=== PATIENT | female | born 1995 ===

== ENCOUNTER 2020-11-03 16:46 | Inpatient (IN) | payer BC ==
[2020-11-03 18:21] LABS: BLOOD UREA NITROGEN,BUN 9 mg/dL (7.0-18.0); CARBON DIOXIDE,CO2 26.1 mmol/L (21.0-32.0); CHLORIDE,CL 102 mmol/L (98-107); GLUCOSE RANDOM 87 mg/dL (74-106); POTASSIUM,K 4.2 mmol/L (3.5-5.1); SODIUM,NA 138 mmol/L (136-145)
[2020-11-03] MEDS ORDERED: Misoprostol 25 MCG (1/4 of 100 MCG) Tab VAG PRN (19:38)
[2020-11-03] MEDS ORDERED: Carboprost Tromethamine 250 MCG/1 ML Amp IM PRN (19:38)
[2020-11-03] MEDS ORDERED: Butorphanol 1 MG/ML SDV IVPUSH PRN (19:38)
[2020-11-03] MEDS ORDERED: Tranexamic Acid 1,000 MG in Sodium Chloride 0.9% 100 ML IV PRN (19:38)
[2020-11-03] MEDS ORDERED: Misoprostol 200 MCG Tab PO PRN (19:38)
[2020-11-03] MEDS ORDERED: Methylergonovine 0.2 MG/1 ML Amp IM PRN (19:38)
[2020-11-03] MEDS ORDERED: Sodium Chloride 0.9% 2.5 ML Syringe FLUSH PRN (19:38)
[2020-11-03] MEDS ORDERED: Terbutaline 1 MG/ML SDV SUBCUT PRN (19:38)
[2020-11-03] MEDS ORDERED: Nalbuphine 10 MG/1 ML Vial IVPUSH PRN (19:38)
[2020-11-03] MEDS ORDERED: Sodium Chloride 0.9% 10 ML Syringe FLUSH PRN (19:38)
[2020-11-03] MEDS ORDERED: Water For Irrigation,Sterile 1,000 ML Container IRR PRN (19:38)
[2020-11-03] MEDS ORDERED: Ondansetron 4 MG/2 ML SDV IVPUSH PRN (19:38)
[2020-11-03] MEDS ORDERED: Sodium Chloride 0.9% 10 ML SDV IV PRN (19:38)
[2020-11-03] MEDS ORDERED: Lidocaine 1% 50 ML MDV INJECT PRN (19:38)
[2020-11-03] MEDS ORDERED: Lactated Ringers 1,000 ML IV SCH (19:45)
[2020-11-03] MEDS ORDERED: Oxytocin/0.9 % Sodium Chloride 30 UNIT/500 ML BAG IV SCH (19:45)
[2020-11-03] MEDS ORDERED: Calcium Gluconate 10% 1 GM/10 ML SDV IV PRN (21:04)
[2020-11-03] MEDS ORDERED: Magnesium Sulfate/Water 4 GM in Premix Bag 1 BAG IV ONE (21:04)
[2020-11-03] MEDS: Magnesium Sulfate/Water 20 GM/500 ML BAG IV SCH (22:00)
[2020-11-04] MEDS: Lactated Ringers 1,000 ML IV SCH ×2 (02:20→03:40)
[2020-11-04] MEDS ORDERED: Ropivacaine HCl/PF 200 ML ONE ×2 (02:43→16:37)
[2020-11-04] MEDS: Magnesium Sulfate/Water 20 GM/500 ML BAG IV SCH (08:30)
[2020-11-04] MEDS ORDERED: Magnesium Sulfate/Water 20 GM/500 ML BAG IV SCH (10:15)
[2020-11-04] MEDS ORDERED: Lidocaine 2% with EPINEPHrine 1:200,000 20 ML SDV ONE (16:37)
[2020-11-04] MEDS ORDERED: fentaNYL 100 MCG/2 ML SDV ONE (16:38)
--- NOTE | 2020-11-04 17:44 | PCM.PRNOTE ---
- Free Text/Narrative Note: Anes Note Patient epidural infusion is complete. Patient reports increased discomfort in the perinela and sacral area. A sitting dose of 5 cc 2% lido with epi plus 100 mcg fentanyl was administered. A new epidural infusion bag was placed. 200 cc 0.2% ropivicaine with 1 mcg/cc fentanyl was started. rate is 12 cc hr with 8 cc q 20 min prn bolus. Patient now reports much improved analgesia. Time with patient [id number] Kelvin Teague CRNA
[2020-11-04] MEDS: Oxytocin/0.9 % Sodium Chloride 30 UNIT/500 ML BAG IV SCH ×2 (17:53→18:07)
[2020-11-04] MEDS ORDERED: Witch Hazel Medicated Pads 40/Jar TOP PRN (18:12)
[2020-11-04] MEDS ORDERED: Docusate Sodium 100 MG Cap PO PRN (18:12)
[2020-11-04] MEDS ORDERED: Benzocaine/Menthol 20%-0.5% Spray 78 GM Cannister TOP PRN (18:12)
[2020-11-04] MEDS ORDERED: Bisacodyl 10 MG Supp RECTAL PRN (18:12)
[2020-11-04] MEDS ORDERED: Acetaminophen 500 MG Tab PO PRN ×2 (18:12)
[2020-11-04] MEDS ORDERED: oxyCODONE 5 MG Tab PO PRN (18:12)
[2020-11-04] MEDS ORDERED: Lanolin 100% Cream 7 GM Tube TOP PRN (18:12)
[2020-11-04] MEDS ORDERED: Ibuprofen 400 MG Tab PO PRN (18:12)
--- NOTE | 2020-11-04 18:22 | PCM.DEL ---
L & D Note - General Info Date of Service: 11/04/20 - Delivery Note Labor: Induced by Oxytocin Cervical Ripening Method: Misoprostil Delivery Outcome: Livebirth Delivery Method: Spontaneous Vaginal Delivery-Single Infant Delivery Mode: Spontaneous Presentation: Right Occiput Anterior (ROSA ISELA) Nuchal Cord: Present, Reduced Anesthesia Type: Epidural Amniotic Fluid Description: Clear Episiotomy Type: None Laceration: None Placenta: Intact, Spontaneous Cord: 3 Vessels Estimated Blood Loss: 250 Resuscitation Needed: Yes Provider: Janet Chauhan Post Delivery Events: Shoulder Dystocia (1min 10sec, delivered with McRobert's, suprapubic pressure, posterior arm) Second Stage Interventions: Reports: Pushing Effectively, Pushing, McRobert's Position - General Info Date of Service: 11/04/20 - Patient Data Weight - Most Recent: 197 lb 6.4 oz I&O - Last 24 Hours: Intake & Output 11/04/20 11/04/20 11/04/20 06:59 14:59 22:59 Intake Total 1000 250 Output Total 1530 Balance 1000 -1280 Lab Results Last 24 Hours: Laboratory Results - last 24 hr 11/03/20 11/03/20 11/03/20 Range/Units 17:40 17:40 20:00 Sodium 138 (136-145) mmol/L Potassium 4.2 (3.5-5.1) mmol/L Chloride 102 (98-107) mmol/L Carbon Dioxide 26.1 (21.0-32.0) mmol/L BUN 9 (7.0-18.0) mg/dL Creatinine 0.7 (0.6-1.0) mg/dL Est Cr Clr Drug Dosing TNP Estimated GFR (MDRD) > 60.0 ml/min Glucose 87 (74-106) mg/dL Uric Acid 4.6 (2.6-7.2) mg/dL Calcium 8.2 L (8.5-10.1) mg/dL Magnesium (1.8-2.4) mg/dL Total Bilirubin 0.2 (0.2-1.0) mg/dL AST 18 (15-37) IU/L ALT 23 (14-63) IU/L Alkaline Phosphatase 115 (46-116) U/L Lactate Dehydrogenase 204 (81-234) U/L Total Protein 6.8 (6.4-8.2) g/dL Albumin 2.9 L (3.4-5.0) g/dL Globulin 3.9 (2.6-4.0) g/dL Albumin/Globulin Ratio 0.7 L (0.9-1.6) SARS-CoV-2 RNA (ERWIN) NEGATIVE (NEGATIVE) Blood Type A POSITIVE Antibody Screen NEGATIVE 11/04/20 11/04/20 11/04/20 Range/Units 02:12 08:06 14:18 Sodium (136-145) mmol/L Potassium (3.5-5.1) mmol/L Chloride (98-107) mmol/L Carbon Dioxide (21.0-32.0) mmol/L BUN (7.0-18.0) mg/dL Creatinine (0.6-1.0) mg/dL Est Cr Clr Drug Dosing Estimated GFR (MDRD) ml/min Glucose (74-106) mg/dL Uric Acid (2.6-7.2) mg/dL Calcium (8.5-10.1) mg/dL Magnesium 4.5 H 5.1 H 4.8 H (1.8-2.4) mg/dL Total Bilirubin (0.2-1.0) mg/dL AST (15-37) IU/L ALT (14-63) IU/L Alkaline Phosphatase (46-116) U/L Lactate Dehydrogenase (81-234) U/L Total Protein (6.4-8.2) g/dL Albumin (3.4-5.0) g/dL Globulin (2.6-4.0) g/dL Albumin/Globulin Ratio (0.9-1.6) SARS-CoV-2 RNA (ERWIN) (NEGATIVE) Blood Type Antibody Screen Med Orders - Current: Current Medications Acetaminophen (Acetaminophen 500 Mg Tab) 500 mg PO Q4H PRN PRN Reason: Pain (mild 1-3) Acetaminophen (Acetaminophen 500 Mg Tab) 1,000 mg PO Q4H PRN PRN Reason: Pain (mild 1-3) Benzocaine/Menthol (Benzocaine/Menthol 20%-0.5% Jennings 78 Gm Cannister) 78 gm TOP ASDIRECTED PRN PRN Reason: Perineal Comfort Measure Bisacodyl (Bisacodyl 10 Mg Supp) 10 mg RECTAL ONETIME PRN PRN Reason: Constipation Calcium Gluconate (Calcium Gluconate 10% 1 Gm/10 Ml Sdv) 1 gm IV ASDIRECTED PRN PRN Reason: respiratory distress Docusate Sodium (Docusate Sodium 100 Mg Cap) 100 mg PO Q12H PRN PRN Reason: Constipation Emollient Ointment (Lanolin 100% Cream 7 Gm Tube) 0 gm TOP ASDIRECTED PRN PRN Reason: Sore Nipples Oxytocin/Sodium Chloride (Oxytocin 30 Unit In Ns 0.9% 500 Ml Premix) 30 unit in 500 mls @ 2 mls/hr IV TITRATE NOY; Protocol Last Titration: 11/04/20 17:53 Dose: 0 munits/min, 0 mls/hr Documented by: Lactated Ringer's (Ringers, Lactated) 1,000 mls @ 5 mls/hr IV ASDIRECTED NOY Last Admin: 11/04/20 03:40 Dose: 5 mls/hr Documented by: Magnesium Sulfate (Magnesium Sulfate In Water 20 Gm/500 Ml) 20 gm in 500 mls @ 25 mls/hr IV ASDIRECTED [facility] Ibuprofen (Ibuprofen 400 Mg Tab) 400 mg PO Q4H PRN PRN Reason: Pain (mild 1-3) Ibuprofen (Ibuprofen 800 Mg Tab) 800 mg PO Q6H PRN PRN Reason: Cramping Misoprostol (Misoprostol 25 Mcg (1/4 Of 100 Mcg) Tab) 25 mcg VAG ONETIME PRN PRN Reason: Cervical Ripening Last Admin: 11/03/20 21:30 Dose: 25 mcg Documented by: Oxycodone HCl (Oxycodone 5 Mg Tab) 5 mg PO Q2H PRN PRN Reason: Pain (severe 7-10) Sodium Chloride (Sodium Chloride 0.9% 10 Ml Syringe) 10 ml FLUSH ASDIRECTED PRN PRN Reason: Keep Vein Open Sodium Chloride (Sodium Chloride 0.9% 2.5 Ml Syringe) 2.5 ml FLUSH ASDIRECTED PRN PRN Reason: Keep Vein Open Sodium Chloride (Sodium Chloride 0.9% 10 Ml Sdv) 10 ml IV ASDIRECTED PRN PRN Reason: IV Use Terbutaline Sulfate (Terbutaline 1 Mg/Ml Sdv) 0.25 mg SUBCUT ASDIRECTED PRN PRN Reason: Tacysystole Witch Nidia (Witch Nidia Medicated Pads 40/Jar) 1 pad TOP ASDIRECTED PRN PRN Reason: comfort care Discontinued Medications Butorphanol Tartrate (Butorphanol 1 Mg/Ml Sdv) 1 mg IVPUSH Q1H PRN PRN Reason: Pain (severe 7-10) Carboprost Tromethamine (Carboprost Tromethamine 250 Mcg/1 Ml Amp) 250 mcg IM ASDIRECTED PRN PRN Reason: Post Hemorrhage Fentanyl (Fentanyl 100 Mcg/2 Ml Sdv) Confirm Administered Dose 100 mcg .ROUTE .STK-MED ONE Stop: 11/04/20 16:39 Lactated Ringer's (Ringers, Lactated) 1,000 mls @ 150 mls/hr IV ASDIRECTED [facility] Last Admin: 11/03/20 21:37 Dose: 5 mls/hr Documented by: Oxytocin/Sodium Chloride (Oxytocin 30 Unit In Ns 0.9% 500 Ml Premix) 30 unit in 500 mls @ 500 mls/hr IV TITRATE [facility] Last Admin: 11/04/20 17:53 Dose: 999 mls/hr Documented by: Tranexamic Acid 1,000 mg/ (Sodium Chloride) 110 mls @ 660 mls/hr IV ONETIME PRN PRN Reason: Bleeding Magnesium Sulfate 4 gm/ Premix 100 mls @ 300 mls/hr IV BOLUS ONE Stop: 11/03/20 21:23 Last Admin: 11/03/20 21:40 Dose: 300 mls/hr Documented by: Magnesium Sulfate (Magnesium Sulfate In Water 20 Gm/500 Ml) 20 gm in 500 mls @ 50 mls/hr IV ASDIRECTED [facility] Last Infusion: 11/04/20 10:12 Dose: 1 gm/hr, 25 mls/hr Documented by: Ropivacaine (Naropin 0.2%) Confirm Administered Dose 200 mls @ as directed .ROUTE .ST-MED ONE Stop: 11/04/20 02:44 Last Admin: 11/04/20 07:37 Dose: Not Given Documented by: Ropivacaine (Naropin 0.2%) Confirm Administered Dose 200 mls @ as directed .ROUTE .STK-MED ONE Stop: 11/04/20 16:38 Lidocaine HCl (Lidocaine 1% 50 Ml Mdv) 50 ml INJECT ONETIME PRN PRN Reason: Laceration repair Lidocaine/Epinephrine (Lidocaine 2% With Epinephrine 1:200,000 20 Ml Sdv) Confirm Administered Dose 20 ml .ROUTE .STK-MED ONE Stop: 11/04/20 16:38 Miscellaneous Medication (Phenylephrine Hcl In 0.9% Nacl 1 Mg/10 Ml Syringe) Confirm Administered Dose 1 mg .ROUTE .STK-MED ONE Stop: 11/04/20 03:27 Misoprostol (Misoprostol 200 Mcg Tab) 200 mcg PO ONETIME PRN PRN Reason: Post Hemorrhage Nalbuphine HCl (Nalbuphine 10 Mg/1 Ml Vial) 10 mg IVPUSH Q1H PRN PRN Reason: Pain (severe 7-10) Ondansetron HCl (Ondansetron 4 Mg/2 Ml Sdv) 4 mg IVPUSH Q6H PRN PRN Reason: Nausea/Vomiting Sterile Water (Water For Irrigation,Sterile 1,000 Ml Container) 1,000 ml IRR ASDIRECTED PRN PRN Reason: delivery - Exam Urinary Catheter Total Time: 0Days 5Hours - Problem List Review Problem List Initiated/Reviewed/Updated: Yes - My Orders Last 24 Hours: My Active Orders 11/04/20 18:12 Patient Status [ADT] Routine May Shower [RC] ASDIRECTED Up ad Radha [RC] ASDIRECTED Acetaminophen [Tylenol Extra Strength] 1,000 mg PO Q4H PRN Acetaminophen [Tylenol Extra Strength] 500 mg PO Q4H PRN Benzocaine/Menthol [Dermoplast Pain Relief 20%-0.5% Jennings] 78 gm TOP ASDIRECTED PRN Docusate Sodium [Colace] 100 mg PO Q12H PRN Ibuprofen [Motrin] 400 mg PO Q4H PRN Ibuprofen [Motrin] 800 mg PO Q6H PRN Lanolin [Lansinoh HPA] See Dose Instructions TOP ASDIRECTED PRN bisacodyL [Dulcolax] 10 mg RECTAL ONETIME PRN oxyCODONE 5 mg PO Q2H PRN witch Nidia [Tucks] 1 pad TOP ASDIRECTED PRN Assess Lochia [WOMSER] Per Unit Routine Assess Uterine Involution [WOMSER] Per Unit Routine Peripheral IV Discontinue [OM.PC] Routine 11/04/20 18:13 Insert Urinary Catheter [OM.PC] Stat Perineal Care [OM.PC] Per Unit Routine Sitz Bath [OM.PC] Per Unit Routine 11/04/20 18:14 Urinary Catheter Assessment [RC] ASDIRECTED 11/05/20 05:00 URIC ACID [CHEM] Routine 11/05/20 05:11 CBC W/O DIFF,HEMOGRAM [HEME] AM COMPREHENSIVE METABOLIC PN,CMP [CHEM] AM - Assessment Assessment:: 24yo PPD0 s/p , IOL for preeclampsia with severe features and complicated by shoulder dystocia. - Plan Plan:: - continue to monitor vitals closely, plan to continue magnesium sulfate for 24hours , repeat preeclampsia labs in the AM. Baby had low APGARs which responded well to resuscitation, continue care per pediatric team.
--- NOTE | 2020-11-04 22:42 | PCM.SN.2 ---
- Free Text/Narrative Note: Called by patient nurse that patient had a syncopal episode when she was getting up from the bed to the wheelchair. She was feeling a cramp in her right leg and tingling sensation before she stood up. She was became unresponsive for about 10 seconds while falling into the wheelchair then after that was not responding appropriately was about 15min. Rapid response was called, BP was normotensive 110s/50-60s, HR 70-80s, O2 Sat 98-100% on RA. Patient had light bleeding since delivery and did not have any issues prior to this episode. Magnesium infusion was turned off. She became alert, oriented and responsive after a few minutes. She was back to baseline after I arrived to evaluate her. Vitals was stable. Hgb stable at 13.5. Mg at 4.3. Ordered bilateral LE dopplers. Will stop magnesium at this time since BP has been stable, will monitor closely. Time Documentation
--- NOTE | 2020-11-05 00:24 | OR ---
SURGEON: Amadou Guzman MD DATE OF PROCEDURE: 11/04/2020 INDICATION FOR PROCEDURE: This is a 24-year-old G 3, P 1-0-1-1 at 38 weeks and 0 days, admitted for induction of labor due to preeclampsia with severe features. The patient was seen in the office yesterday and reported visual changes with lights in her eyes and increased lower extremity swelling. She was sent to Labor and Delivery for evaluation and preeclampsia labs were normal except for an elevated protein/ creatinine ratio of 1.5. She had some mild range blood pressures. She otherwise had an uncomplicated . She is GBS negative. The patient was admitted for induction of labor. She was start on magnesium sulfate for seizure prophylaxis, BP was mostly normotensive. She received 1 dose of Cytotec and began to make cervical change to 3 cm. She was then started on Pitocin. She had strong and regular contractions, and had an epidural was for pain control. AROM was performed with clear fluid. She continued to progress with Pitocin. The head did come down and she progressed to fully dilated and 0 station. PREOPERATIVE DIAGNOSES: 1. Castillo intrauterine at 38 weeks and 0 days. 2. Preeclampsia with severe features. POSTOPERATIVE DIAGNOSES: 1. Castillo intrauterine at 38 weeks and 0 days. 2. Preeclampsia with severe features. 3. Shoulder dystocia. PROCEDURE PERFORMED: Normal spontaneous vaginal delivery. ANESTHESIOLOGISTS: Dr. Pagan. ANESTHESIA: Epidural. FINDINGS: A viable male . scores of 2, 8, and 9. weight was 7 pounds and 5 ounces. Nuchal cord x1. There was a 70-second shoulder dystocia which was relieved by delivering the posterior arm. ESTIMATED BLOOD LOSS: 300 mL. DESCRIPTION OF PROCEDURE: She began pushing with contractions for about an hour. The heart rate tracing was reassuring. Her epidural was not as effective at that time, so she elected to take a break and her epidural was topped off. After about 45 minutes, she began again to push after about 20 min head delivered in an occiput anterior position over an intact perineum. head restituted ROT. Anterior shoulder did not deliver initially. With palpation was found to have a shoulder dystocia. Ramírez maneuver was performed, and suprapubic pressure was applied from the direction of the back. I was not able to rotate the shoulders, therefore, the decision was made to deliver the posterior arm. After the posterior arm was delivered, was able to deliver the anterior shoulder and the remaining body. Shoulder dystocia lasted 70 seconds. There was a nuchal cord x1 that was reduced after delivery. The baby was initially pale and hypotonic, was handed over to nursery staff immediately. The umbilical cord was clamped and cut, Evaluation and resuscitation was performed by nursery staff. Rapid response was called to assist with the resuscitation. The umbilical cord gases were obtained. The placenta was removed with gentle traction on the umbilical cord. It was intact with 3-vessel cord. Perineum and vagina were examined, and she had no lacerations. Fundal massage was performed, and the fundus was firm and below the umbilicus, and the bleeding was light. The baby did respond after a few minutes to resuscitative efforts and was breathing with good heart rate. The patient tolerated the procedure well and was given care instructions. Plan to continue the magnesium sulfate for 24 hours . AXEL GARY /[id number] MTDD
[2020-11-05] MEDS: Ibuprofen 800 MG Tab PO PRN ×3 (00:33→20:16)
--- NOTE | 2020-11-05 00:37 | US ---
INDICATION: RT LEG CRAMPING, VAGINAL DELIVERY TODAY BILATERAL LOWER EXTREMITY VENOUS DUPLEX ULTRASOUND TECHNIQUE: Duplex sonography using grayscale imaging as well as color and spectral Doppler interrogation was performed over both lower extremities with attention to the deep venous system. FINDINGS: The common femoral, femoral, deep femoral, popliteal, and posterior tibial veins show normal compressibility, color Doppler flow, and augmentation response bilaterally. IMPRESSION: No evidence of deep venous thrombosis in either lower extremity. BRIANNA VÁZQUEZ MD [employer] Dictated by: Samuel Vázquez MD @ 11/05/2020 00:36:03 (Electronically Signed)
[2020-11-05 07:20] LABS: BLOOD UREA NITROGEN,BUN 7 mg/dL (7.0-18.0); CARBON DIOXIDE,CO2 24.5 mmol/L (21.0-32.0); CHLORIDE,CL 104 mmol/L (98-107); GLUCOSE RANDOM 94 mg/dL (74-106); POTASSIUM,K 4.2 mmol/L (3.5-5.1); SODIUM,NA 139 mmol/L (136-145)
--- NOTE | 2020-11-05 08:57 | PCM.PNPP ---
- General Info Date of Service: 11/05/20 Subjective Update: Denies any dizziness, shortness of breath or visual changes. Some cramping relieved by ibuprofen. Functional Status: Reports: Pain Controlled, Tolerating Diet, Ambulating, Urinating - Review of Systems General: Reports: No Symptoms HEENT: Reports: No Symptoms Pulmonary: Reports: No Symptoms Cardiovascular: Reports: No Symptoms Gastrointestinal: Reports: No Symptoms Genitourinary: Reports: No Symptoms Musculoskeletal: Reports: No Symptoms Skin: Reports: No Symptoms Neurological: Reports: No Symptoms Psychiatric: Reports: No Symptoms - Patient Data Vital Signs - Most Recent: Last Vital Signs Temp 36.7 C 11/05/20 03:54 Pulse 85 11/05/20 03:54 Resp 18 11/05/20 03:54 BP 110/60 11/05/20 03:54 Pulse Ox 98 11/05/20 03:54 Weight - Most Recent: 89.539 kg I&O - Last 24 Hours: Intake & Output 11/04/20 11/05/20 11/05/20 22:59 06:59 14:59 Output Total 2750 Balance -2750 Lab Results - Last 24 Hours: Laboratory Results - last 24 hr 11/04/20 11/04/20 11/04/20 Range/Units 08:06 14:18 19:56 WBC (4.0-11.0) K/uL RBC (4.30-5.90) M/uL Hgb (12.0-16.0) g/dL Hct (36.0-46.0) % MCV (80.0-98.0) fL MCH (27.0-32.0) pg MCHC (31.0-37.0) g/dL RDW Std Deviation (28.0-62.0) fl RDW Coeff of [place] (11.0-15.0) % Plt Count (150-400) K/uL MPV (7.40-12.00) fL Nucleated RBC % /100WBC Nucleated RBCs # K/uL Sodium (136-145) mmol/L Potassium (3.5-5.1) mmol/L Chloride (98-107) mmol/L Carbon Dioxide (21.0-32.0) mmol/L BUN (7.0-18.0) mg/dL Creatinine (0.6-1.0) mg/dL Est Cr Clr Drug Dosing mL/min Estimated GFR (MDRD) ml/min Glucose (74-106) mg/dL POC Glucose (70-99) mg/dL Uric Acid (2.6-7.2) mg/dL Calcium (8.5-10.1) mg/dL Magnesium 5.1 H 4.8 H 4.3 H (1.8-2.4) mg/dL Total Bilirubin (0.2-1.0) mg/dL AST (15-37) IU/L ALT (14-63) IU/L Alkaline Phosphatase (46-116) U/L Total Protein (6.4-8.2) g/dL Albumin (3.4-5.0) g/dL Globulin (2.6-4.0) g/dL Albumin/Globulin Ratio (0.9-1.6) 11/04/20 11/04/20 11/04/20 Range/Units 21:41 21:52 21:52 WBC 27.51 H (4.0-11.0) K/uL RBC 4.39 (4.30-5.90) M/uL Hgb 13.5 (12.0-16.0) g/dL Hct 38.7 (36.0-46.0) % MCV 88.2 (80.0-98.0) fL MCH 30.8 (27.0-32.0) pg MCHC 34.9 (31.0-37.0) g/dL RDW Std Deviation 44.7 (28.0-62.0) fl RDW Coeff of [place] 14 (11.0-15.0) % Plt Count 262 (150-400) K/uL MPV 10.00 (7.40-12.00) fL Nucleated RBC % 0.2 /100WBC Nucleated RBCs # 0 K/uL Sodium (136-145) mmol/L Potassium (3.5-5.1) mmol/L Chloride (98-107) mmol/L Carbon Dioxide (21.0-32.0) mmol/L BUN (7.0-18.0) mg/dL Creatinine (0.6-1.0) mg/dL Est Cr Clr Drug Dosing mL/min Estimated GFR (MDRD) ml/min Glucose (74-106) mg/dL POC Glucose 122 H (70-99) mg/dL Uric Acid (2.6-7.2) mg/dL Calcium (8.5-10.1) mg/dL Magnesium 4.3 H (1.8-2.4) mg/dL Total Bilirubin (0.2-1.0) mg/dL AST (15-37) IU/L ALT (14-63) IU/L Alkaline Phosphatase (46-116) U/L Total Protein (6.4-8.2) g/dL Albumin (3.4-5.0) g/dL Globulin (2.6-4.0) g/dL Albumin/Globulin Ratio (0.9-1.6) 11/05/20 11/05/20 11/05/20 Range/Units 06:36 06:36 06:36 WBC 18.54 H (4.0-11.0) K/uL RBC 3.86 L (4.30-5.90) M/uL Hgb 11.7 L (12.0-16.0) g/dL Hct 33.9 L (36.0-46.0) % MCV 87.8 (80.0-98.0) fL MCH 30.3 (27.0-32.0) pg MCHC 34.5 (31.0-37.0) g/dL RDW Std Deviation 44.9 (28.0-62.0) fl RDW Coeff of [place] 14 (11.0-15.0) % Plt Count 255 (150-400) K/uL MPV 10.20 (7.40-12.00) fL Nucleated RBC % 0.0 /100WBC Nucleated RBCs # 0 K/uL Sodium 139 (136-145) mmol/L Potassium 4.2 (3.5-5.1) mmol/L Chloride 104 (98-107) mmol/L Carbon Dioxide 24.5 (21.0-32.0) mmol/L BUN 7 (7.0-18.0) mg/dL Creatinine 0.6 (0.6-1.0) mg/dL Est Cr Clr Drug Dosing 102.95 mL/min Estimated GFR (MDRD) > 60.0 ml/min Glucose 94 (74-106) mg/dL POC Glucose (70-99) mg/dL Uric Acid 4.9 (2.6-7.2) mg/dL Calcium 7.5 L (8.5-10.1) mg/dL Magnesium (1.8-2.4) mg/dL Total Bilirubin 0.5 (0.2-1.0) mg/dL AST 20 (15-37) IU/L ALT 19 (14-63) IU/L Alkaline Phosphatase 97 (46-116) U/L Total Protein 5.4 L (6.4-8.2) g/dL Albumin 2.3 L (3.4-5.0) g/dL Globulin 3.1 (2.6-4.0) g/dL Albumin/Globulin Ratio 0.7 L (0.9-1.6) Med Orders - Current: Current Medications Acetaminophen (Acetaminophen 500 Mg Tab) 500 mg PO Q4H PRN PRN Reason: Pain (mild 1-3) Acetaminophen (Acetaminophen 500 Mg Tab) 1,000 mg PO Q4H PRN PRN Reason: Pain (mild 1-3) Benzocaine/Menthol (Benzocaine/Menthol 20%-0.5% [place] 78 Gm Cannister) 78 gm TOP ASDIRECTED PRN PRN Reason: Perineal Comfort Measure Last Admin: 11/04/20 20:09 Dose: 1 can Documented by: Bisacodyl (Bisacodyl 10 Mg Supp) 10 mg RECTAL ONETIME PRN PRN Reason: Constipation Calcium Gluconate (Calcium Gluconate 10% 1 Gm/10 Ml Sdv) 1 gm IV ASDIRECTED PRN PRN Reason: respiratory distress Docusate Sodium (Docusate Sodium 100 Mg Cap) 100 mg PO Q12H PRN PRN Reason: Constipation Emollient Ointment (Lanolin 100% Cream 7 Gm Tube) 0 gm TOP ASDIRECTED PRN PRN Reason: Sore Nipples Lactated Ringer's (Ringers, Lactated) 1,000 mls @ 5 mls/hr IV ASDIRECTED NOY Last Admin: 11/04/20 03:40 Dose: 5 mls/hr Documented by: Magnesium Sulfate (Magnesium Sulfate In Water 20 Gm/500 Ml) 20 gm in 500 mls @ 25 mls/hr IV ASDIRECTED [facility] Ibuprofen (Ibuprofen 400 Mg Tab) 400 mg PO Q4H PRN PRN Reason: Pain (mild 1-3) Ibuprofen (Ibuprofen 800 Mg Tab) 800 mg PO Q6H PRN PRN Reason: Cramping Last Admin: 11/05/20 00:33 Dose: 800 mg Documented by: Oxycodone HCl (Oxycodone 5 Mg Tab) 5 mg PO Q2H PRN PRN Reason: Pain (severe 7-10) Sodium Chloride (Sodium Chloride 0.9% 10 Ml Syringe) 10 ml FLUSH ASDIRECTED PRN PRN Reason: Keep Vein Open Sodium Chloride (Sodium Chloride 0.9% 2.5 Ml Syringe) 2.5 ml FLUSH ASDIRECTED PRN PRN Reason: Keep Vein Open Sodium Chloride (Sodium Chloride 0.9% 10 Ml Sdv) 10 ml IV ASDIRECTED PRN PRN Reason: IV Use Witch Nidia (Witch Nidia Medicated Pads 40/Jar) 1 pad TOP ASDIRECTED PRN PRN Reason: comfort care Last Admin: 11/04/20 20:10 Dose: 1 tub Documented by: Discontinued Medications Butorphanol Tartrate (Butorphanol 1 Mg/Ml Sdv) 1 mg IVPUSH Q1H PRN PRN Reason: Pain (severe 7-10) Carboprost Tromethamine (Carboprost Tromethamine 250 Mcg/1 Ml Amp) 250 mcg IM ASDIRECTED PRN PRN Reason: Post Hemorrhage Fentanyl (Fentanyl 100 Mcg/2 Ml Sdv) Confirm Administered Dose 100 mcg .ROUTE .[facility]-MED ONE Stop: 11/04/20 16:39 Last Admin: 11/05/20 03:00 Dose: Not Given Documented by: Lactated Ringer's (Ringers, Lactated) 1,000 mls @ 150 mls/hr IV ASDIRECTED NOY Last Admin: 11/03/20 21:37 Dose: 5 mls/hr Documented by: Oxytocin/Sodium Chloride (Oxytocin 30 Unit In Ns 0.9% 500 Ml Premix) 30 unit in 500 mls @ 500 mls/hr IV TITRATE NOY Last Infusion: 11/04/20 18:50 Dose: 500 mls/hr Documented by: Tranexamic Acid 1,000 mg/ (Sodium Chloride) 110 mls @ 660 mls/hr IV ONETIME PRN PRN Reason: Bleeding Oxytocin/Sodium Chloride (Oxytocin 30 Unit In Ns 0.9% 500 Ml Premix) 30 unit in 500 mls @ 2 mls/hr IV TITRATE NOY; Protocol Last Titration: 11/04/20 17:53 Dose: 0 munits/min, 0 mls/hr Documented by: Magnesium Sulfate 4 gm/ Premix 100 mls @ 300 mls/hr IV BOLUS ONE Stop: 11/03/20 21:23 Last Admin: 11/03/20 21:40 Dose: 300 mls/hr Documented by: Magnesium Sulfate (Magnesium Sulfate In Water 20 Gm/500 Ml) 20 gm in 500 mls @ 50 mls/hr IV ASDIRECTED [facility] Last Infusion: 11/04/20 10:12 Dose: 1 gm/hr, 25 mls/hr Documented by: Ropivacaine (Naropin 0.2%) Confirm Administered Dose 200 mls @ as directed .ROUTE .[facility]-MED ONE Stop: 11/04/20 02:44 Last Admin: 11/04/20 07:37 Dose: Not Given Documented by: Ropivacaine (Naropin 0.2%) Confirm Administered Dose 200 mls @ as directed .ROUTE .[facility]-MED ONE Stop: 11/04/20 16:38 Last Admin: 11/05/20 03:00 Dose: Not Given Documented by: Lidocaine HCl (Lidocaine 1% 50 Ml Mdv) 50 ml INJECT ONETIME PRN PRN Reason: Laceration repair Lidocaine/Epinephrine (Lidocaine 2% With Epinephrine 1:200,000 20 Ml Sdv) Confirm Administered Dose 20 ml .ROUTE .[facility]-MED ONE Stop: 11/04/20 16:38 Last Admin: 11/05/20 03:00 Dose: Not Given Documented by: Miscellaneous Medication (Phenylephrine Hcl In 0.9% Nacl 1 Mg/10 Ml Syringe) Confirm Administered Dose 1 mg .ROUTE .[facility]-MED ONE Stop: 11/04/20 03:27 Misoprostol (Misoprostol 200 Mcg Tab) 200 mcg PO ONETIME PRN PRN Reason: Post Hemorrhage Misoprostol (Misoprostol 25 Mcg (1/4 Of 100 Mcg) Tab) 25 mcg VAG ONETIME PRN PRN Reason: Cervical Ripening Last Admin: 11/03/20 21:30 Dose: 25 mcg Documented by: Nalbuphine HCl (Nalbuphine 10 Mg/1 Ml Vial) 10 mg IVPUSH Q1H PRN PRN Reason: Pain (severe 7-10) Ondansetron HCl (Ondansetron 4 Mg/2 Ml Sdv) 4 mg IVPUSH Q6H PRN PRN Reason: Nausea/Vomiting Sterile Water (Water For Irrigation,Sterile 1,000 Ml Container) 1,000 ml IRR ASDIRECTED PRN PRN Reason: delivery Terbutaline Sulfate (Terbutaline 1 Mg/Ml Sdv) 0.25 mg SUBCUT ASDIRECTED PRN PRN Reason: Tacysystole - Infant Interaction Infant Disposition, : in Room with Family Interaction: Holding Feeding: Breastfed Infant; Nursed Well Support Person: - Recovery Exam Fundal Tone: Firm Fundal Level: 2 Fingerbreadths Below Umbilicus Fundal Placement: Midline Lochia Amount: Scant Lochia Color: Rubra/Red - Exam General: Alert, Oriented HEENT: Pupils Equal Lungs: Normal Respiratory Effort Cardiovascular: Regular Rate, Regular Rhythm GI/Abdominal Exam: Soft, Non-Tender, No Organomegaly, No Distention Extremities: Normal Inspection, Non-Tender, No Pedal Edema Skin: Warm, Dry, Intact Neurological: No New Focal Deficit Psy/Mental Status: Alert, Normal Affect, Normal Mood - Problem List & Annotations (1) Vaginal delivery SNOMED Code(s): 704568192 Code(s): O80 - ENCOUNTER FOR FULL-TERM UNCOMPLICATED DELIVERY Status: Acute Current Visit: Yes (2) Pre-eclampsia SNOMED Code(s): 329161651 Code(s): O14.90 - UNSPECIFIED PRE-ECLAMPSIA, UNSPECIFIED TRIMESTER Status: Acute Current Visit: Yes - Problem List Review Problem List Initiated/Reviewed/Updated: Yes - My Orders Last 24 Hours: My Active Orders 11/04/20 08:15 Deep Tendon Reflexes [[facility]] Q111/04/20 09:15 Deep Tendon Reflexes [[facility]] 11/04/20 10:15 Magnesium Sulfate/Water [Magnesium Sulfate in Water 20 GM/500 ML] 20 gm in 500 ml IV ASDIRECTED Deep Tendon Reflexes [[facility]] 11/04/20 11:15 Deep Tendon Reflexes [[facility]OM[facility]ER] 11/04/20 12:15 Deep Tendon Reflexes [WOMSER] 11/04/20 13:15 Deep Tendon Reflexes [[facility]OM[facility]ER] 11/04/20 14:15 Deep Tendon Reflexes [[facility]OMSER] 11/04/20 15:15 Deep Tendon Reflexes [[facility]OM[facility]ER] Q1H 11/04/20 16:15 Deep Tendon Reflexes [[facility]OM[facility]ER] Q1H 11/04/20 17:15 Deep Tendon Reflexes [[facility]OM[facility]ER] Q1H 11/04/20 18:15 Deep Tendon Reflexes [WOMSER] Q1H 11/04/20 19:15 Deep Tendon Reflexes [WOMSER] Q1H 11/04/20 20:15 Deep Tendon Reflexes [WOMSER] Q1H - Assessment Assessment:: 24yo PPD1 s/p , IOL for preeclampsia with severe features and complicated by shoulder dystocia. Asymptomatic at this time, BP improved. Would like to be discharged at 24 hours , bilirubin pending on baby - Plan Plan:: Monitor BP today if stable consider discharge tonight.
--- NOTE | 2020-11-05 10:51 | PCM48HPAN ---
Post Anesthesia Note - EVALUATION WITHIN 48HRS OF ANESTHETIC Vital Signs in Normal Range: Yes Patient Participated in Evaluation: Yes Respiratory Function Stable: Yes Airway Patent: Yes Cardiovascular Function Stable: Yes Hydration Status Stable: Yes Pain Control Satisfactory: Yes Nausea and Vomiting Control Satisfactory: Yes Mental Status Recovered: Yes Vital Signs: Last Vital Signs Temp 97.1 F 11/05/20 08:00 Pulse 84 11/05/20 08:00 Resp 16 11/05/20 08:00 BP 111/65 11/05/20 08:00 Pulse Ox 97 11/05/20 08:00
--- NOTE | 2020-11-05 10:51 | PCM.POSTAN ---
POST ANESTHESIA ASSESSMENT - MENTAL STATUS Mental Status: Alert, Oriented - VITAL SIGNS Vital Signs: Last Vital Signs Temp 97.1 F 11/05/20 08:00 Pulse 84 11/05/20 08:00 Resp 16 11/05/20 08:00 BP 111/65 11/05/20 08:00 Pulse Ox 97 11/05/20 08:00 - RESPIRATORY Respiratory Status: Respiratory Rate WNL, Airway Patent, O2 Saturation Stable - CARDIOVASCULAR CV Status: Pulse Rate WNL, Blood Pressure Stable - GASTROINTESTINAL GI Status: No Symptoms - POST OP HYDRATION Hydration Status: Adequate & Stable
[2020-11-06] MEDS: Ibuprofen 800 MG Tab PO PRN ×2 (04:51→17:31)
--- NOTE | 2020-11-06 10:07 | PCM.PNPP ---
- General Info Date of Service: 11/06/20 Subjective Update: Patient without complaints this morning. Minimal bleeding and pain. going well. Functional Status: Reports: Pain Controlled, Tolerating Diet, Ambulating, Urinating - Review of Systems General: Reports: No Symptoms HEENT: Reports: No Symptoms Pulmonary: Reports: No Symptoms Cardiovascular: Reports: No Symptoms Gastrointestinal: Reports: No Symptoms Genitourinary: Reports: No Symptoms Musculoskeletal: Reports: No Symptoms Skin: Reports: No Symptoms Neurological: Reports: No Symptoms Psychiatric: Reports: No Symptoms - Patient Data Vital Signs - Most Recent: Last Vital Signs Temp 35.9 C L 11/06/20 07:40 Pulse 77 11/06/20 07:40 Resp 16 11/06/20 07:40 BP 129/57 L 11/06/20 07:40 Pulse Ox 98 11/06/20 07:40 Weight - Most Recent: 89.539 kg Lab Results - Last 24 Hours: Laboratory Results - last 24 hr 11/03/20 Range/Units 17:40 RPR Non-Reac (Non-Reac) Med Orders - Current: Current Medications Acetaminophen (Acetaminophen 500 Mg Tab) 500 mg PO Q4H PRN PRN Reason: Pain (mild 1-3) Acetaminophen (Acetaminophen 500 Mg Tab) 1,000 mg PO Q4H PRN PRN Reason: Pain (mild 1-3) Benzocaine/Menthol (Benzocaine/Menthol 20%-0.5% [place] 78 Gm Cannister) 78 gm TOP ASDIRECTED PRN PRN Reason: Perineal Comfort Measure Last Admin: 11/04/20 20:09 Dose: 1 can Documented by: Bisacodyl (Bisacodyl 10 Mg Supp) 10 mg RECTAL ONETIME PRN PRN Reason: Constipation Calcium Gluconate (Calcium Gluconate 10% 1 Gm/10 Ml Sdv) 1 gm IV ASDIRECTED PRN PRN Reason: respiratory distress Docusate Sodium (Docusate Sodium 100 Mg Cap) 100 mg PO Q12H PRN PRN Reason: Constipation Emollient Ointment (Lanolin 100% Cream 7 Gm Tube) 0 gm TOP ASDIRECTED PRN PRN Reason: Sore Nipples Last Admin: 11/06/20 04:53 Dose: 1 tube Documented by: Lactated Ringer's (Ringers, Lactated) 1,000 mls @ 5 mls/hr IV ASDIRECTED [facility] Last Admin: 11/04/20 03:40 Dose: 5 mls/hr Documented by: Magnesium Sulfate (Magnesium Sulfate In Water 20 Gm/500 Ml) 20 gm in 500 mls @ 25 mls/hr IV ASDIRECTED [facility] Ibuprofen (Ibuprofen 400 Mg Tab) 400 mg PO Q4H PRN PRN Reason: Pain (mild 1-3) Ibuprofen (Ibuprofen 800 Mg Tab) 800 mg PO Q6H PRN PRN Reason: Cramping Last Admin: 11/06/20 04:51 Dose: 800 mg Documented by: Oxycodone HCl (Oxycodone 5 Mg Tab) 5 mg PO Q2H PRN PRN Reason: Pain (severe 7-10) Sodium Chloride (Sodium Chloride 0.9% 10 Ml Syringe) 10 ml FLUSH ASDIRECTED PRN PRN Reason: Keep Vein Open Sodium Chloride (Sodium Chloride 0.9% 2.5 Ml Syringe) 2.5 ml FLUSH ASDIRECTED PRN PRN Reason: Keep Vein Open Sodium Chloride (Sodium Chloride 0.9% 10 Ml Sdv) 10 ml IV ASDIRECTED PRN PRN Reason: IV Use Witch Nidia (Witch Nidia Medicated Pads 40/Jar) 1 pad TOP ASDIRECTED PRN PRN Reason: comfort care Last Admin: 11/04/20 20:10 Dose: 1 tub Documented by: Discontinued Medications Butorphanol Tartrate (Butorphanol 1 Mg/Ml Sdv) 1 mg IVPUSH Q1H PRN PRN Reason: Pain (severe 7-10) Carboprost Tromethamine (Carboprost Tromethamine 250 Mcg/1 Ml Amp) 250 mcg IM ASDIRECTED PRN PRN Reason: Post Hemorrhage Fentanyl (Fentanyl 100 Mcg/2 Ml Sdv) Confirm Administered Dose 100 mcg .ROUTE .[facility]-MED ONE Stop: 11/04/20 16:39 Last Admin: 11/05/20 03:00 Dose: Not Given Documented by: Lactated Ringer's (Ringers, Lactated) 1,000 mls @ 150 mls/hr IV ASDIRECTED [facility] Last Admin: 11/03/20 21:37 Dose: 5 mls/hr Documented by: Oxytocin/Sodium Chloride (Oxytocin 30 Unit In Ns 0.9% 500 Ml Premix) 30 unit in 500 mls @ 500 mls/hr IV TITRATE [facility] Last Infusion: 11/04/20 18:50 Dose: 500 mls/hr Documented by: Tranexamic Acid 1,000 mg/ (Sodium Chloride) 110 mls @ 660 mls/hr IV ONETIME PRN PRN Reason: Bleeding Oxytocin/Sodium Chloride (Oxytocin 30 Unit In Ns 0.9% 500 Ml Premix) 30 unit in 500 mls @ 2 mls/hr IV TITRATE NOY; Protocol Last Titration: 11/04/20 17:53 Dose: 0 munits/min, 0 mls/hr Documented by: Magnesium Sulfate 4 gm/ Premix 100 mls @ 300 mls/hr IV BOLUS ONE Stop: 11/03/20 21:23 Last Admin: 11/03/20 21:40 Dose: 300 mls/hr Documented by: Magnesium Sulfate (Magnesium Sulfate In Water 20 Gm/500 Ml) 20 gm in 500 mls @ 50 mls/hr IV ASDIRECTED NOY Last Infusion: 11/04/20 10:12 Dose: 1 gm/hr, 25 mls/hr Documented by: Ropivacaine (Naropin 0.2%) Confirm Administered Dose 200 mls @ as directed .ROUTE .[facility]-MED ONE Stop: 11/04/20 02:44 Last Admin: 11/04/20 07:37 Dose: Not Given Documented by: Ropivacaine (Naropin 0.2%) Confirm Administered Dose 200 mls @ as directed .ROUTE .[facility]-MED ONE Stop: 11/04/20 16:38 Last Admin: 11/05/20 03:00 Dose: Not Given Documented by: Lidocaine HCl (Lidocaine 1% 50 Ml Mdv) 50 ml INJECT ONETIME PRN PRN Reason: Laceration repair Lidocaine/Epinephrine (Lidocaine 2% With Epinephrine 1:200,000 20 Ml Sdv) Confirm Administered Dose 20 ml .ROUTE .ST[facility]-MED ONE Stop: 11/04/20 16:38 Last Admin: 11/05/20 03:00 Dose: Not Given Documented by: Miscellaneous Medication (Phenylephrine Hcl In 0.9% Nacl 1 Mg/10 Ml Syringe) Confirm Administered Dose 1 mg .ROUTE .STK-MED ONE Stop: 11/04/20 03:27 Misoprostol (Misoprostol 200 Mcg Tab) 200 mcg PO ONETIME PRN PRN Reason: Post Hemorrhage Misoprostol (Misoprostol 25 Mcg (02/08 Of 100 Mcg) Tab) 25 mcg VAG ONETIME PRN PRN Reason: Cervical Ripening Last Admin: 11/03/20 21:30 Dose: 25 mcg Documented by: Nalbuphine HCl (Nalbuphine 10 Mg/1 Ml Vial) 10 mg IVPUSH Q1H PRN PRN Reason: Pain (severe 7-10) Ondansetron HCl (Ondansetron 4 Mg/2 Ml Sdv) 4 mg IVPUSH Q6H PRN PRN Reason: Nausea/Vomiting Sterile Water (Water For Irrigation,Sterile 1,000 Ml Container) 1,000 ml IRR ASDIRECTED PRN PRN Reason: delivery Terbutaline Sulfate (Terbutaline 1 Mg/Ml Sdv) 0.25 mg SUBCUT ASDIRECTED PRN PRN Reason: Tacysystole - Infant Interaction Infant Disposition, : in Room with Family Infant Interaction: Holding Feeding: Breastfed Infant; Nursed Well Support Person: - Recovery Exam Fundal Tone: Firm Fundal Level: 2 Fingerbreadths Below Umbilicus Fundal Placement: Midline Lochia Amount: Scant Lochia Color: Rubra/Red Bladder Status: Voiding Urinary Elimination: Voided - Exam General: Alert, Oriented Neck: Supple Lungs: Normal Respiratory Effort GI/Abdominal Exam: Soft, Non-Tender Extremities: Non-Tender, No Pedal Edema Skin: Warm, Dry, Intact Neurological: No New Focal Deficit Psy/Mental Status: Alert, Normal Affect, Normal Mood - Problem List & Annotations (1) Pre-eclampsia SNOMED Code(s): 341318369 Code(s): O14.90 - UNSPECIFIED PRE-ECLAMPSIA, UNSPECIFIED TRIMESTER Status: Acute Current Visit: Yes (2) Vaginal delivery SNOMED Code(s): 255102191 Code(s): O80 - ENCOUNTER FOR FULL-TERM UNCOMPLICATED DELIVERY Status: Acute Current Visit: Yes - Problem List Review Problem List Initiated/Reviewed/Updated: Yes - My Orders Last 24 Hours: My Active Orders 11/06/20 10:05 Ready for Discharge [RC] PER UNIT ROUTINE - Assessment Assessment:: 24yo PPD1 s/p , PPD#2, IOL for preeclampsia with severe features and complicated by shoulder dystocia. BP normal and asymptomatic. - Plan Plan:: Plan for discharge home today. Reviewed discharge instructions/precautions. All questions answered.
== END 2020-11-06 18:05 | disposition home or self-care (01) | DRG 560 ==
LOC: MW.OBCHECK 16:46 → MW.OB 17:46 → OBSVTOIN 11-04 17:46 → MW.OB 11-05 02:22
PROVIDERS: ADMIT Obstetrics & Gynecology; ATTEND Obstetrics & Gynecology
PROC: 10E0XZZ Delivery of Products of Conception, External Approach (ICD-10-PCS; principal; 2020-11-04)
PROC: 10907ZC Drainage of Amniotic Fluid, Therapeutic from Products of Conception, Via Natural or Artificial Opening (ICD-10-PCS; 2020-11-04)
PROC: 3E033VJ Introduction of Other Hormone into Peripheral Vein, Percutaneous Approach (ICD-10-PCS; 2020-11-04)
PROC: 3E0P7VZ Introduction of Hormone into Female Reproductive, Via Natural or Artificial Opening (ICD-10-PCS; 2020-11-04)
PROC: 3E0R3BZ Introduction of Anesthetic Agent into Spinal Canal, Percutaneous Approach (ICD-10-PCS; 2020-11-04)
PROC: 00HU33Z Insertion of Infusion Device into Spinal Canal, Percutaneous Approach (ICD-10-PCS; 2020-11-04)
DX: O14.14 Severe pre-eclampsia complicating childbirth (principal); Z37.0 Single live birth; O69.81X0 Labor and delivery complicated by cord around neck, without compression, not applicable or unspecified; O66.0 Obstructed labor due to shoulder dystocia; Z20.822 Contact with and (suspected) exposure to COVID-19; Z3A.38 38 weeks gestation of pregnancy
CPT/HCPCS: 36415; 51701; 51702; 59025; 59409; 80053; 82570; 82947; 83615; 83735; 84156; 84550; 85025; 85027; 86592; 86850; 86900; 86901; 93970; 93970-26; A9270-GY; J2370; J2590; J2795; J3475; J7120; U0002